=== PATIENT | female | born 1965 | race Caucasian/White ===

== ENCOUNTER 2024-09-22 21:05 | Emergency (ER) | payer OTHER, BC ==
[~2024-09-22] VITALS: Ht 165.1 cm; Wt 61.2 kg
[2024-09-22] MEDS ORDERED: KETOROLAC TROMETHAMINE INJ 30 MG/ML VIAL ONE (22:03)
[2024-09-22] MEDS: KETOROLAC TROMETHAMINE 15 MG/ML VIAL IM ONE (22:06)
[2024-09-22 22:10] VITALS: BP 130/90; TEMP 98; O2SAT 100
== END 2024-09-22 22:10 | disposition home or self-care (01) ==
LOC: ER 21:10
DX: S13.4XXA Sprain of ligaments of cervical spine, initial encounter (principal); R06.02 Shortness of breath; R51.9 Headache, unspecified; V43.52XA Car driver injured in collision with other type car in traffic accident, initial encounter; Y93.89 Activity, other specified; Y92.89 Other specified places as the place of occurrence of the external cause; Y99.8 Other external cause status
CPT/HCPCS: 99283; 96372; J1885